=== PATIENT | female | born 1980 | race Caucasian/White ===

== ENCOUNTER 2025-10-15 23:16 | Inpatient (IN) | payer OTHER, SELFPAY ==
[2025-10-15 15:45] VITALS: BP 115/78
[2025-10-15 16:13] LABS: Hematocrit 40.3 % (37.0-47.0); Hemoglobin 14.4 g/dL (12.0-16.0); Mean Corp Hgb Conc. 35.7 g/dL (33.0-37.0); Mean Corpuscular Volume 84.1 fL (81.0-99.0); Nucleated Red Blood Cells % 0 %; Platelet Count 187 10^3/uL (130-400); Red Cell Dist. Width 11.9 % (11.5-14.5)
[2025-10-15 16:19] LABS: HCG, Serum Qualitative Screen Negative
[2025-10-15 16:27] LABS: ALT (SGPT) 62 U/L (0-35); AST (SGOT) 44 U/L (14-36); Albumin 4.4 g/dl (3.5-5.0); Alkaline Phosphatase 63 U/L (38-126); Blood Urea Nitrogen 12 mg/dl (7-17); Calcium 8.5 mg/dl (8.4-10.2); Carbon Dioxide 23 mmol/L (22-30); Chloride 96 mmol/L (98-107); Glucose 135 mg/dl (70-99); Potassium 4.2 mmol/L (3.5-5.1); Sodium 132 mmol/L (135-145); Total Protein 7.0 g/dl (6.3-8.2); eGFR > 60.00
[2025-10-15 20:11] VITALS: BP 135/78; BMI 33.1
[2025-10-15] MEDS: NSS 1000 IV (20:23)
[2025-10-15] MEDS: TYLENOL 1000 MG PO (20:26)
--- NOTE | 2025-10-15 21:13 | ED.GENMED ---
History of Present Illness
<Robina Monet PA-C - Last Filed: 10/15/25 22:23>
General
Chief Complaint: Fever
Time Seen by Provider: 10/15/25 20:08
History of Present Illness
History of Present Illness:
Annalisa is a 45-year-old female with no past medical history presents from urgent care with influenza and pneumonia. Reports that she was send and states that her x-ray was 'bad'. Reports cough fever and fatigue for the past 6 days. Has not been
improving as an outpatient which is what prompted her to get evaluated urgent care today. Denies any shortness of breath or chest pain.
Phy Exam
<Robina Monet PA-C - Last Filed: 10/15/25 22:23>
General Physical Exam
General Presentation: no apparent distress and mild distress
General Skin: warm and dry
General Habitus: normal
General Mental: alert
General Hydration: dry mucous membranes
ENT Exam
ENT Exam: EOMI, pharynx normal, neck supple and normocephalic
Eye Exam
Eye Exam: PERRL, cornea clear and conjunctiva normal
Cardiovascular Exam
Cardiovascular Exam: regular rate/rhythm, no edema, no murmur and normal peripheral pulses
Pulmonary Exam
Pulmonary Exam: lungs clear, no respiratory distress, no crackles, no rhonchi, no stridor, no wheezing and no cough
Breath Sounds: Rhonchi: left lower and right lower
Gastrointestinal Exam
Gastrointestinal Exam: normal bowel sounds, non tender, soft, no organomegaly, no pulsatile mass and non distended
Neurological Exam
Neurological Exam: alert, oriented x3, no motor deficits and speech normal
Musculoskeletal Exam
Musculoskeletal Exam: full ROM and no edema
Skin Exam
Skin Exam: normal color, warm/dry, no rash and no petechia
Psychiatric Exam
Psychiatric Exam: normal mood/affect
Sepsis
<Robina Monet PA-C - Last Filed: 10/15/25 22:23>
Sepsis Screening
Sepsis Assessment: Sepsis
Sepsis Screening: Lactate >2mmol/L
Sepsis Screen
Sepsis Screen: Sepsis
Date: 10/15/25
Time: 22:23
Course
<Robina Monet PA-C - Last Filed: 10/15/25 22:23>
Orders/Labs/Results
Orders:
Orders
10/15/25 15:50
Test Result ONCE
10/15/25 15:57
Complete Blood Count/With Diff Urgent
Comprehensive Metabolic Panel Urgent
HCG, Serum Qualitative Screen Urgent
Comment: Notify provider if positive test present
Lactic Acid Urgent
10/15/25 20:16
0.9% Sodium Chloride 1000 ml [Nss] 1,000 ml IV BOLUS
CXR2 [CR Chest - 2 Views ] Urgent
Comment:
Reason For Exam: cough, fevers, PNA at urgent care
10/15/25 20:25
Acetaminophen [Tylenol] 1,000 mg .ROUTE .STK-MED ONE
10/15/25 20:26
Acetaminophen [Tylenol] 1,000 mg PO NOW STA
10/15/25 21:40
Azithromycin 500 mg/250 ml [Zithromax Infusion] 500 mg in 250 ml IV NOW
CefTRIAXone [Rocephin] 1,000 mg IV NOW STA
10/15/25 21:42
Electrocardiogram (*1) Urgent
Reason for Study: Tachycardia
EKG- Treatment ONCE
Abnormal Lab Results
10/15/25
15:57
WBC 12.4 H 10^3/uL
(4.8-10.8)
Abs Immat Gran (auto) 0.1 H 10^3/uL
(0-0.05)
Absolute Neuts (auto) 10.7 H 10^3/uL
(1.4-6.5)
Absolute Lymphs (auto) 1.0 L 10^3/uL
(1.2-3.4)
Neutrophils % 86.7 H %
(42.2-75.2)
Lymphocytes % 7.9 L %
(20.5-51.1)
Sodium 132 L mmol/L
(135-145)
Chloride 96 L mmol/L
(98-107)
Glucose 135 H mg/dl
(70-99)
Lactic Acid 2.3 H mmol/L
(0.7-2.0)
AST 44 H U/L
(14-36)
ALT 62 H U/L
(0-35)
10/15/25 15:57
10/15/25 15:57
Vital Signs
Initial and Last Documented VS:
Initial Vital Signs
Temp Pulse Resp BP Pulse Ox
37.2 C 125 22 115/78 95
10/15/25 15:45 10/15/25 15:45 10/15/25 15:45 10/15/25 15:45 10/15/25 15:45
Last Documented Vital Signs
Temp Pulse Resp BP Pulse Ox
38.5 C H 112 18 135/78 97
10/15/25 20:23 10/15/25 20:12 10/15/25 20:12 10/15/25 20:11 10/15/25 21:15
<Marcin Guillen, DO - Last Filed: 10/15/25 21:50>
Orders/Labs/Results
Orders:
Orders
10/15/25 15:50
Test Result ONCE
10/15/25 15:57
Complete Blood Count/With Diff Urgent
Comprehensive Metabolic Panel Urgent
HCG, Serum Qualitative Screen Urgent
Comment: Notify provider if positive test present
Lactic Acid Urgent
10/15/25 20:16
0.9% Sodium Chloride 1000 ml [Nss] 1,000 ml IV BOLUS
CXR2 [CR Chest - 2 Views ] Urgent
Comment:
Reason For Exam: cough, fevers, PNA at urgent care
10/15/25 20:25
Acetaminophen [Tylenol] 1,000 mg .ROUTE .STK-MED ONE
10/15/25 20:26
Acetaminophen [Tylenol] 1,000 mg PO NOW STA
10/15/25 21:40
Azithromycin 500 mg/250 ml [Zithromax Infusion] 500 mg in 250 ml IV NOW
CefTRIAXone [Rocephin] 1,000 mg IV NOW STA
10/15/25 21:42
Electrocardiogram (*1) Urgent
Reason for Study: Tachycardia
EKG- Treatment ONCE
Abnormal Lab Results
10/15/25
15:57
WBC 12.4 H 10^3/uL
(4.8-10.8)
Abs Immat Gran (auto) 0.1 H 10^3/uL
(0-0.05)
Absolute Neuts (auto) 10.7 H 10^3/uL
(1.4-6.5)
Absolute Lymphs (auto) 1.0 L 10^3/uL
(1.2-3.4)
Neutrophils % 86.7 H %
(42.2-75.2)
Lymphocytes % 7.9 L %
(20.5-51.1)
Sodium 132 L mmol/L
(135-145)
Chloride 96 L mmol/L
(98-107)
Glucose 135 H mg/dl
(70-99)
Lactic Acid 2.3 H mmol/L
(0.7-2.0)
AST 44 H U/L
(14-36)
ALT 62 H U/L
(0-35)
10/15/25 15:57
10/15/25 15:57
Vital Signs
Initial and Last Documented VS:
Initial Vital Signs
Temp Pulse Resp BP Pulse Ox
37.2 C 125 22 115/78 95
10/15/25 15:45 10/15/25 15:45 10/15/25 15:45 10/15/25 15:45 10/15/25 15:45
Last Documented Vital Signs
Temp Pulse Resp BP Pulse Ox
38.5 C H 112 18 135/78 97
10/15/25 20:23 10/15/25 20:12 10/15/25 20:12 10/15/25 20:11 10/15/25 21:15
<Robina Monet PA-C - Last Filed: 10/15/25 22:23>
MDM/Problems Addressed
Differential Diagnosis Includes:
Patient maintaining adequate saturations on room air. Feels very unwell. Found to be febrile to 102 � Tylenol given. Tachycardic to 104. EKG shows sinus tachycardia. Lactic acid mildly elevated 2.3. WBC 12.4.
Will give IV fluids and reassess vital signs.
Chest x-ray obtained shows multifocal pneumonia.
On reevaluation patient's tachycardia is improved to 112.
Discussed options with the patient regarding admission versus home. Discussed that if she were to return home, nahed mckenna to discharge from the ER she would need to have a downtrending lactic acid, improved tachycardia, and have very close follow-up
for her pneumonia. Patient feels more comfortable with admission. Will cover with ceftriaxone and azithromycin for community-acquired pneumonia. Spoke with the hospitalist who will admit patient to their service.
<Robina Monet PA-C - Last Filed: 10/15/25 22:23>
*Pulse Oximetry
SaO2: 97
Oxygen Mode of Delivery: Room air
Patient hypoxic: no
*Critical Care Note
Total Time (30-74mins, 75-104mins- exclusive of procedures): Not Applicable (60 mins)
ED Attending Note
<Robina Monet PA-C - Last Filed: 10/15/25 22:23>
-
Portions of this chart may have been created with voice recognition software.� Occasional wrong word or��sound alike� substitutions may have occurred due to the inherent limitations of voice recognition software.
<Marcin Guillen DO - Last Filed: 10/15/25 21:50>
ED Attending Note
Patient seen and examined by attending physician: Yes
I performed the substantive portion of visit, reviewed & personally made and approve the management plan that is documented in note by myself or LUCA.: Yes
ED Attending Note:
I have seen and evaluated the patient with a [id number] encounter. I have spoken to the advance practicer provider and involved in the medical history, the physical exam, medical decision making.
Evaluation and management service: agree unless noted differently below.
Results interpretation: agree unless noted differently below.
Focused HPI: 45-year-old female presenting with several days of cough and shortness of breath. Patient went to urgent care diagnosed with influenza and pneumonia and sent to the emergency department for further evaluation
Physical exam: Persistent cough. Weak and fatigued
Medical Decision Making: Chest x-ray concerning for multifocal pneumonia. Given the clinical status and her elevated lactic acid, patient started on IV antibiotics and IV fluids. Will admit
Discharge Plan
Departure
Patient Disposition: Admit
Date of Disposition: 10/15/25
Time of Disposition: 21:43
Presentation/result/management discussed w/ accepting MD/DO: Hospitalist
Discharge Problem:
Multifocal pneumonia, Influenza A, Tachycardia
Prescriptions:
No Action
vit-iron fum-folic ac 1 EACH tablet
1 ea PO DAILY
acetaminophen 325 MG tablet
650 mg PO Q4HPRN PRN (Reason: mild pain) 0RF
ibuprofen 600 MG tablet
600 mg PO Q4HPRN PRN (Reason: cramps) 0RF
Referrals:
Winston Borjas MD [Family Provider, Family Practice]
Interventions
Interventions:
*General Assessment Last Done: 10/15/25 15:45
*Neglect/Abuse Screening Last Done: 10/15/25 15:45
*ED COVID-19 Vaccine History Last Done: 10/15/25 20:12
*ED Influenza Vaccine History Last Done: 10/15/25 20:12
[facility] Fall Risk Assessment Tool Last Done: 10/15/25 20:11
*Risk Screen - Suicide (C-SSRS) Last Done: 10/15/25 20:13
ED- Neurological Assessment Last Done: 10/15/25 20:12
ED-Skin Assessment Last Done: 10/15/25 20:12
Discharge Date and Time
Print Language: LITHUANIAN
[2025-10-15] MEDS: ZITHROMAX INFUSION 250 IV (21:53)
[2025-10-15] MEDS: ROCEPHIN 1000 MG IV (21:54)
[2025-10-15 22:03] VITALS: BP 95/62
--- NOTE | 2025-10-15 22:04 | HPS.HSE ---
Family Physician
-
Family Physician: Winston Borjas
Chief Complaint
-
Fever
History of Present Illness
This is a 45-year-old female with no known significant past medical history who presents to the emergency department from urgent care with ongoing fever and cough. He was found to have influenza A at the urgent care clinic.
Patient reports onset of symptoms about 5 days ago. She reports that she multiple members of her household that developed fevers cough and some breathing issues. She has persistent cough for the last 5 days and she has been having fevers for which
she has been taking Tylenol and NyQuil. She denies any dyspnea on exertion. Cough is more productive. She has not been on any antibiotics or other symptomatic treatments.
She was seen in urgent care today and was diagnosed with influenza A, also had a chest x-ray which showed concern for pneumonia patient was sent to the emergency department. Patient denies any recent antibiotic use and denies any recent hospital
stay, last hospital stay was over 4 years ago during childbirth.
In the emergency department patient was febrile to one 1.3, blood pressure was 135/78 with a pulse rate of 112 and oxygen saturation of 97% on room air. He had a white count of 3.4 hemoglobin 14.5 platelet 187. Lactic acid was elevated 2.3.
Electrolytes were all within normal limits. He had mild elevation of AST and ALT to the 40s only.
Chest x-ray shows bilateral airspace opacities located in the mid left lung and mid to lower right lung compatible with multifocal pneumonia.
Medical History
Past Medical History
Past Medical History: Reports None
Past Surgical History: Reports Appendectomy and
Social History
Tobacco: Non-smoker
Alcohol: Occasional
Drug: None
Living: With Family
Employment: Employed
Family History
Family History: Not pertinent
Allergies / Home Medications
Allergies reflects when Allergies were last updated in [employer].
Home Medications with original date entered in [employer]
Allergy/Medication List:
Allergies
Allergy/AdvReac Type Severity Reaction Status Date / Time
amoxicillin Allergy Hives Verified 10/15/25 15:50
Home Medications
vitamin-ferrous fumarate 28 mg iron-folic acid 800 mcg tablet 1 ea PO DAILY 10/23/19
acetaminophen 325 mg tablet 650 mg (2 x 325 mg) PO Q4HPRN PRN mild pain 10/26/19
ibuprofen 600 mg tablet 600 mg PO Q4HPRN PRN cramps 10/26/19
Review of Systems
-
History Source: Patient
Constitutional: Reports Fever
EENT: Reports No Symptoms
Respiratory: Reports Cough
Cardiac: Reports No Symptoms
Abdomen/GI: Reports No Symptoms
: Reports No Symptoms
Musculoskeletal: Reports No Symptoms
Skin: Reports No Symptoms
Neurological: Reports No Symptoms
Endocrine: Reports No Symptoms
Hematologic/Lymphatic: Reports No Symptoms
Psych: Reports No Symptoms
Physical Exam
Vital Signs
Vital Signs
Temp Pulse Resp BP Pulse Ox
101.3 F H 112 18 135/78 97
10/15/25 20:23 10/15/25 20:12 10/15/25 20:12 10/15/25 20:11 10/15/25 21:15
Physical Exam
General: Well Developed, Well Nourished and No Apparent Distress
HEENT: NormoCephalic, Moist mucous membranes and Atraumatic
Respiratory: Clear
Cardiac: S1/S2 and Regular Rhythm; No Murmur or Rub
GI: Soft, Non Tender, Non Distended and Normal Bowel Sounds; No Organomegaly
Rectal: Deferred by Provider
Musculoskeletal: No Clubbing, No Cyanosis and No Edema
Skin: No Rash
Neuro: AO x 3 and Nonfocal/grossly intact
Psych: Calm
Laboratory Results
-
10/15/25 15:57
10/15/25 15:57
Laboratory Results
Lactic Acid 2.3 mmol/L (0.7-2.0) H 10/15/25 15:57
Total Bilirubin 0.9 mg/dl (0.2-1.3) 10/15/25 15:57
AST 44 U/L (14-36) H 10/15/25 15:57
ALT 62 U/L (0-35) H 10/15/25 15:57
Alkaline Phosphatase 63 U/L (38-126) 10/15/25 15:57
Data Reviewed
-
Diagnostic Radiology: Image Personally Visualized and interpreted and Report Reviewed by me
Medical Tests (Nuc Med, Echo, EKG etc): Image Personally Visualized and interpreted
Lab Data: Labs Reviewed by me
Old Records: Reviewed
Impression/Plan
-
IMPRESSION:
45-year-old female with past medical history that is not significant presents to the emergency department from urgent care after being diagnosed with influenza A and x-ray showing multifocal infiltrates. Here in the emergency department she had
multifocal infiltrates on x-ray, fever to 103 elevated lactic acid concerning for pneumonia. She does have about 5 days of symptoms prior to arrival in the emergency department. She is hemodynamically stable. She does not require oxygen.
PLAN:
Pneumonia -influenza A, possible superimposed bacterial pneumonia
� Admit to [facility]
� Despite symptoms ongoing for 5 days patient requires admission to hospital so will be started on Tamiflu 75 mg p.o. twice daily
� Given possible superimposed bacterial pneumonia will continue with ceftriaxone and azithromycin
� Will check procalcitonin in a.m. to see if we need to continue the antibiotics
� Sputum culture
� Check MRSA swab, Legionella and streptococcal urinary antigens
� Supportive measures with IV fluids, antiemetics antipyretics
� Incentive spirometry
� Nebs as needed
� Cough suppression and pain control
DVT prophylaxis�Lovenox subcu
CODE STATUS�full code
[2025-10-15 23:00] VITALS: BP 89/54
[2025-10-15 23:16] VITALS: BMI 33.1
[2025-10-15] MEDS: TAMIFLU 75 MG PO (23:54)
[2025-10-15 23:55] VITALS: BP 99/61
[2025-10-16] VITALS (18 sets, daily range): BP systolic 86–121; BP diastolic 52–80
[2025-10-16] MEDS: NSS 1000 IV (03:14)
[2025-10-16 06:04] LABS: Hematocrit 35.1 % (37.0-47.0); Hemoglobin 12.2 g/dL (12.0-16.0); Mean Corp Hgb Conc. 34.8 g/dL (33.0-37.0); Mean Corpuscular Volume 85.6 fL (81.0-99.0); Platelet Count 165 10^3/uL (130-400); Red Cell Dist. Width 12.0 % (11.5-14.5)
[2025-10-16 06:12] LABS: Blood Urea Nitrogen 14 mg/dl (7-17); Calcium 8.2 mg/dl (8.4-10.2); Carbon Dioxide 25 mmol/L (22-30); Chloride 102 mmol/L (98-107); Estimated Creatinine Clearance 84 ml/min; Glucose 111 mg/dl (70-99); Potassium 4.0 mmol/L (3.5-5.1); Sodium 133 mmol/L (135-145); eGFR > 60.00
[2025-10-16 06:45] LABS: Procalcitonin 2.06 ng/ml (0.0-0.25)
[2025-10-16] MEDS: TAMIFLU 75 MG PO (08:07)
[2025-10-16] MEDS: LR 1000 IV (09:00)
--- NOTE | 2025-10-16 09:49 | CM ---
Chart reviewed and spoke with pt at ED bedside
Lives with in [address]
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
no DME
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
States that she has plenty of support
PCP Winston Krause
[facility] in [place]
no hx of VN nor SNF
DCP is to return home
Family can provide transportation at [place]
CM will continue to follow up for any dcp needs
--- NOTE | 2025-10-16 14:45 | W.PN.HOSP.TC ---
Today's Communication/Plan
-
Continue Tamiflu, antibiotics
Assessment / Plan
Assessment / Plan
Physical Exam
General: Well Developed, Well Nourished and No Apparent Distress
HEENT: NormoCephalic, Moist mucous membranes and Atraumatic
Respiratory: Clear
Cardiac: S1/S2 and Regular Rhythm; No Murmur or Rub
GI: Soft, Non Tender, Non Distended and Normal Bowel Sounds; No Organomegaly
Rectal: Deferred by Provider
Musculoskeletal: No Clubbing, No Cyanosis and No Edema
Skin: No Rash
Neuro: AO x 3 and Nonfocal/grossly intact
Psych: Calm
IMPRESSION:
45-year-old female with past medical history that is not significant presents to the emergency department from urgent care after being diagnosed with influenza A and x-ray showing multifocal infiltrates. Here in the emergency department she had
multifocal infiltrates on x-ray, fever to 103 elevated lactic acid concerning for pneumonia. She does have about 5 days of symptoms prior to arrival in the emergency department. She is hemodynamically stable. She does not require oxygen.
PLAN:
Pneumonia -influenza A, possible superimposed bacterial pneumonia
Sepsis in setting of source and elevated lactate
� Procal 2
� Despite symptoms ongoing for 5 days patient requires admission to hospital so will be started on Tamiflu 75 mg p.o. twice daily
� Given possible superimposed bacterial pneumonia will continue with ceftriaxone and azithromycin
� Sputum culture
� Check MRSA swab, Legionella and streptococcal urinary antigens
� Supportive measures with IV fluids PRN, antiemetics antipyretics
� Incentive spirometry
� Nebs as needed
� Cough suppression and pain control
#Hyponatremia
� Mild
� Continue monitor with resuscitation
DVT prophylaxis�Lovenox subcu
CODE STATUS�full code
Anticipated Discharge: 24 - 48 hours
Subjective/Interval History
-
Date of Service: October 16, 2025
Objective Data
-
Labs:
Laboratory Results
10/16/25
05:41
WBC 13.2 H
Hgb 12.2
Hct 35.1 L
Plt Count 165
Sodium 133 L
Potassium 4.0
Chloride 102
Carbon Dioxide 25
BUN 14
Creatinine 0.9
Glucose 111 H
Calcium 8.2 L
Vital Signs:
Vital Signs
Temp Pulse Resp BP Pulse Ox
101.3 F H 92 18 110/80 97
10/15/25 20:23 10/16/25 14:15 10/16/25 14:15 10/16/25 14:00 10/16/25 14:15
Review of Systems
-
History Source: Patient
All other systems: Not reviewed unless documented
Data Reviewed
-
Diagnostic Radiology: Report Reviewed by me
Labs: Labs Reviewed by me
--- NOTE | 2025-10-16 16:19 | PTCARENOTE ---
Pt arrived to unit from ED on stretcher. Walked from stretcher to bed with no device. AAOx3 able to make needs known. Flu+ on droplet precautions. Orientated to room and use of call riggins. Denies pain/discomfort/SOB. VSS. Call riggins within reach.
[2025-10-16] MEDS: LOVENOX 40 MG SC (17:29)
[2025-10-17] MEDS: TAMIFLU 75 MG PO ×2 (00:12→08:19)
[2025-10-17] MEDS: ROCEPHIN 1000 MG IV (00:12)
[2025-10-17] MEDS: STERILE WATER FOR INJECTION 10 ML IV (00:12)
[2025-10-17] MEDS: ZITHROMAX INFUSION 250 IV (00:19)
[2025-10-17 07:56] LABS: Hematocrit 35.9 % (37.0-47.0); Hemoglobin 12.3 g/dL (12.0-16.0); Mean Corp Hgb Conc. 34.3 g/dL (33.0-37.0); Mean Corpuscular Volume 88.4 fL (81.0-99.0); Platelet Count 176 10^3/uL (130-400); Red Cell Dist. Width 12.1 % (11.5-14.5)
[2025-10-17 08:17] VITALS: BP 121/86
[2025-10-17 08:28] LABS: Blood Urea Nitrogen 9 mg/dl (7-17); Calcium 8.4 mg/dl (8.4-10.2); Carbon Dioxide 26 mmol/L (22-30); Chloride 106 mmol/L (98-107); Estimated Creatinine Clearance 94 ml/min; Glucose 81 mg/dl (70-99); Potassium 4.1 mmol/L (3.5-5.1); Sodium 137 mmol/L (135-145); eGFR > 60.00
--- NOTE | 2025-10-17 10:58 | W.PN.HOSP.TC ---
Addendum entered and electronically signed by Zafar Tomlinson MD 10/17/25 14:51:
[id number]
Original Note:
Today's Communication/Plan
-
Abx course: Continue antibiotic course, cefdinir for additional 6 days to complete 7 days of ceftriaxone to cefdinir; 5-day total course of azithromycin
Tamiflu
F/u CXR in 4-6 weeks
PCP f/u within 1 week
Assessment / Plan
Assessment / Plan
Physical Exam
General: Well Developed, Well Nourished and No Apparent Distress
HEENT: NormoCephalic, Moist mucous membranes and Atraumatic
Respiratory: Clear
Cardiac: S1/S2 and Regular Rhythm; No Murmur or Rub
GI: Soft, Non Tender, Non Distended and Normal Bowel Sounds; No Organomegaly
Rectal: Deferred by Provider
Musculoskeletal: No Clubbing, No Cyanosis and No Edema
Skin: No Rash
Neuro: AO x 3 and Nonfocal/grossly intact
Psych: Calm
IMPRESSION:
45-year-old female with past medical history that is not significant presents to the emergency department from urgent care after being diagnosed with influenza A and x-ray showing multifocal infiltrates. Here in the emergency department she had
multifocal infiltrates on x-ray, fever to 103 elevated lactic acid concerning for pneumonia. She does have about 5 days of symptoms prior to arrival in the emergency department. She is hemodynamically stable. She does not require oxygen.
PLAN:
Pneumonia -influenza A, possible superimposed bacterial pneumonia
Sepsis in setting of source and elevated lactate
� Procal 2
� Much improved today 12/18
� Discharged on Tamiflu to complete 5-day course
� Continue antibiotic course, cefdinir for additional 6 days to complete 7 days of ceftriaxone to cefdinir; 5-day total course of azithromycin
� Legionella and streptococcal urinary antigens negative
� Incentive spirometry
� Nebs as needed
� Cough suppression and pain control
� X-ray in 4 to 6 weeks
� Follow-up PCP within 1 week
� If worsening symptoms present back to the hospital
#Hyponatremia
� Mild
� Continue monitor with resuscitation
DVT prophylaxis�Lovenox subcu
CODE STATUS�full code
More than 30 minutes spent in discharge including
Final examination of the patient
Summarizing hospital stay
Instructions for continuing care to all relevant caregivers
Preparation of discharge records, prescriptions, and referral forms
Total time spent (in minutes): 36
Anticipated Discharge: Today
Subjective/Interval History
-
Date of Service: October 17, 2025
Feeling much better today
Objective Data
-
Labs:
Laboratory Results
10/17/25
06:55
WBC 9.8
Hgb 12.3
Hct 35.9 L
Plt Count 176
Sodium 137
Potassium 4.1
Chloride 106
Carbon Dioxide 26
BUN 9
Creatinine 0.8
Glucose 81
Calcium 8.4
Vital Signs:
Vital Signs
Temp Pulse Resp BP Pulse Ox
98.1 F 80 15 121/86 98
10/17/25 08:17 10/17/25 08:17 10/17/25 08:17 10/17/25 08:17 10/17/25 08:17
Review of Systems
-
History Source: Patient
All other systems: Not reviewed unless documented
Data Reviewed
-
Diagnostic Radiology: Report Reviewed by me
Labs: Labs Reviewed by me
--- NOTE | 2025-10-17 11:58 | CM ---
patient seen at bedside
Discharge today
IMM n/a
PLAN: Home, no needs
mother in law to transport
[2025-10-17 12:00] VITALS: BP 130/93
== END 2025-10-17 12:23 | disposition home or self-care (01) | DRG 871 ==
LOC: 3 WEST ACU 23:16
PROVIDERS: Student in an Organized Health Care Education/Training Program; ADMITTING PHYSICIAN Internal Medicine; ATTENDING PHYSICIAN Internal Medicine; EMERGENCY PHYSICIAN Student in an Organized Health Care Education/Training Program; FAMILY PHYSICIAN Family Medicine
DX: A41.89 Other specified sepsis (principal); J10.08 Influenza due to other identified influenza virus with other specified pneumonia; J15.9 Unspecified bacterial pneumonia; E87.1 Hypo-osmolality and hyponatremia; E87.20 Acidosis, unspecified; J10.1 Influenza due to other identified influenza virus with other respiratory manifestations; R65.20 Severe sepsis without septic shock; Z90.49 Acquired absence of other specified parts of digestive tract; Z88.0 Allergy status to penicillin
CPT/HCPCS: 71046; 80048; 80053; 83605; 84145; 84703; 85025; 85027; 87070; 87071; 87186; 87205; 87449; 87899; 93005; 96361; 96365; 96375; 99291